=== PATIENT | female | born 1995 | race Caucasian/White ===

== ENCOUNTER 2019-08-06 13:21 | Emergency (ER) | payer OTHER ==
[2019-08-06 14:01] VITALS: BP 121/72
--- NOTE | 2019-08-06 15:20 | UC ---
Throat Pain/Nasal Livan HPI - HPI Summary HPI Summary: 23 yo female has has nasal congestion and post nasal drip x 7 weeks now with 24 hour hx sore throat and head ache facial pressure and pain no n/v/d no ear ache - History of Current Complaint Chief Complaint: UCGeneralIllness Stated Complaint: SORE THROAT,HEADACHE Time Seen by Provider: 08/06/19 15:14 Hx Obtained From: Patient Hx Last Menstrual Period: 07/21/19 Onset/Duration: Gradual Onset, Lasting Weeks Severity: Mild Pain Intensity: 4 Pain Scale Used: Adult Non Verbal Cough: Nonproductive Associated Signs & Symptoms: Positive: Sinus Discomfort, Nasal Discharge Related History: Prior ENT Surgery, T & A - Epiglottits Risk Factors Epiglottis Risk Factors: Negative - Allergies/Home Medications Allergies/Adverse Reactions: Allergies Allergy/AdvReac Type Severity Reaction Status Date / Time Sulfa (Sulfonamide Allergy Hives Verified 08/06/19 13:56 Antibiotics) Home Medications: Home Medications Acetaminophen [Pain Relief] 1,000 mg PO ONCE 08/06/19 [History Confirmed ] Amoxicillin PO (*) [Amoxicillin 875 MG (*)] 875 mg PO BID #20 tab 08/06/19 [Rx] Ethinyl Estradiol/Drospirenone [Ocella 3-0.03 mg] 1 tab PO DAILY 08/06/19 [ History Confirmed 08/06/19] Fluticasone NASAL SPRAY 50MCG* [Flonase NASAL SPRAY 50MCG*] 2 spray BOTH NARES BID #1 btl 08/06/19 [Rx] PMH/Surg Hx/FS Hx/Imm Hx Previously Healthy: Yes - Surgical History Surgical History: Yes Surgery Procedure, Year, and Place: anal fissure May 2019 - Family History Known Family History: Positive: Hypertension - Social History Alcohol Use: Occasionally Substance Use Type: None Smoking Status (MU): Never Smoked Tobacco Review of Systems All Other Systems Reviewed And Are Negative: Yes Constitutional: Positive: Fatigue Skin: Positive: Negative Eyes: Positive: Negative ENT: Positive: Sore Throat, Nasal Discharge, Sinus Congestion, Sinus Pain/ Tenderness Respiratory: Positive: Cough Cardiovascular: Positive: Negative Gastrointestinal: Positive: Negative Genitourinary: Positive: Negative Motor: Positive: Negative Neurovascular: Positive: Negative Musculoskeletal: Positive: Negative Neurological/Mental Status: Positive: Headache Psychological: Positive: Negative Physical Exam Triage Information Reviewed: Yes Appearance: Well-Appearing, No Pain Distress, Well-Nourished Vital Signs: Initial Vital Signs Temp 98.8 F 08/06/19 13:57 Pulse 105 08/06/19 13:57 Resp 16 08/06/19 13:57 BP 121/72 08/06/19 13:57 Pulse Ox 97 08/06/19 13:57 Vital Signs Reviewed: Yes Eyes: Positive: Conjunctiva Clear ENT: Positive: Hearing grossly normal, Pharyngeal erythema, Nasal congestion, Nasal drainage, TMs normal, Sinus tenderness, Uvula midline. Negative: Tonsillar swelling, Tonsillar exudate, Trismus, Muffled voice, Dental tenderness Dental Exam: Normal Neck: Positive: Supple, Nontender, Enlarged Nodes @ - anterior cerv nodes Respiratory: Positive: Lungs clear, Normal breath sounds, No respiratory distress, No accessory muscle use Cardiovascular: Positive: RRR, No Murmur Bowel Sounds: Positive: Present Musculoskeletal: Positive: ROM Intact, No Edema Neurological: Positive: Alert Psychological Exam: Normal Skin Exam: Normal Diagnostics - Laboratory Lab Results: strep (-) Throat Pain/Nasal Course/Dx - Differential Dx/Diagnosis Provider Diagnosis: Acute sinusitis, Pharyngitis Discharge ED - Sign-Out/Discharge Documenting (check all that apply): Patient Departure All imaging exams completed and their final reports reviewed: No Studies - Discharge Plan Condition: Stable Disposition: HOME Prescriptions: Amoxicillin PO (*) [Amoxicillin 875 MG (*)] 875 mg PO BID #20 tab Fluticasone NASAL SPRAY 50MCG* [Flonase NASAL SPRAY 50MCG*] 2 spray BOTH NARES BID #1 btl Patient Education Materials: Sinusitis (ED) Referrals: No Primary Care Phys,NOPCP [Primary Care Provider] - Additional Instructions: recheck for worsening symptoms or if not better in 4 days - Billing Disposition and Condition Condition: STABLE Disposition: Home
== END 2019-08-06 15:31 | disposition home or self-care (01) ==
LOC: UCCORT 13:21
DX: J01.90 Acute sinusitis, unspecified (principal); J02.9 Acute pharyngitis, unspecified; Z88.2 Allergy status to sulfonamides
CPT/HCPCS: 87651; 99202; G0463